=== PATIENT | female | born 1995 | race Caucasian/White ===

== ENCOUNTER → 2016-12-09 | Outpatient (CLI) | payer OTHER ==
[~2016-12-09] MED LIST: ALLEGRA180 MG PO; PRILOSEC 20MG20 MG PO; ZITHROMAX 250M250 MG PO
[2016-12-09 14:44] LABS: BASO % 0.4 % (0.0-2.0); EOS # 0.1 (0.0-0.7); EOS % 0.7 % (0-4.0); GRAN % 70.3 % (42.2-75.2); HEMATOCRIT 42.1 % (37.0-47.0); LYMPH # 1.5 (1.2-3.4); LYMPH % 20.8 % (20.0-51.0); MEAN CELL VOLUME 87 fl (80.0-100.0); MEAN CORPUSCULAR HEMOGLOBIN 29 pg (27.0-31.0); MEAN CORPUSCULAR HGB CONC 33 g/dl (33.0-37.0); MONO # 0.5 (0.1-0.6); MONO % 7.2 % (1.7-9.3); PLATELET COUNT 191 K/mm3 (130-400); RED BLOOD COUNT 4.84 M/mm3 (4.10-5.30); REDCELL DISTRIBUTION WIDTH-CV 12.8 % (11.5-14.5); WHITE BLOOD COUNT 7.1 K/mm3 (4.8-10.8)
[2016-12-09 14:54] LABS: ADJUSTED CALCIUM 9.3 mg/dL (8.4-10.2); ALBUMIN 4.3 gm/dL (3.5-5.0); BILIRUBIN,TOTAL 0.5 mg/dL (0.0-1.0); CALCIUM 9.5 mg/dL (8.4-10.2); CREATININE, serum 0.61 mg/dL (0.52-1.25); POTASSIUM 4.2 mmol/L (3.4-5.0)
== END ==
LOC: COL.LAB 14:04
PROVIDERS: Physician Assistant
DX: R11.10 Vomiting, unspecified (principal)

== ENCOUNTER → 2017-02-15 | Outpatient (CLI) | payer OTHER | LOC: BHSO 08:50 | DX: F33.1 Major depressive disorder, recurrent, moderate (principal) ==

== ENCOUNTER → 2017-05-16 | Outpatient (CLI) | payer OTHER | LOC: BHSO 12:49 | DX: F31.81 Bipolar II disorder (principal) ==

== ENCOUNTER 2017-06-14 12:02 | Emergency (ER) | payer OTHER ==
[~2017-06-14] VITALS: Ht 162.6 cm; Wt 118.2 kg
[~2017-06-14 12:02] MED LIST changes: -LOW-OGESTREL 281 TAB PO; -NORCO 325 MG-51 TAB PO; -PRISTIQ100 MG PO
[2017-06-14 12:04] VITALS: BP 169/93; PULSE 112; TEMP 99.1
[2017-06-14] MEDS ORDERED: PRISTIQ100 MG PO (12:10)
[2017-06-14] MEDS ORDERED: LOW-OGESTREL 281 TAB PO (12:11)
[2017-06-14] MEDS ORDERED: NORCO 325 MG-51 TAB PO (12:47)
== END 2017-06-14 13:38 | disposition home or self-care (01) ==
LOC: COL.ER 12:02
DX: S20.00XA Contusion of breast, unspecified breast, initial encounter (principal); F32.9 Major depressive disorder, single episode, unspecified; F41.9 Anxiety disorder, unspecified; X58.XXXA Exposure to other specified factors, initial encounter; Y92.009 Unspecified place in unspecified non-institutional (private) residence as the place of occurrence of the external cause

== ENCOUNTER → 2017-06-14 | Outpatient (CLI) | payer OTHER ==
[~2017-06-14] MED LIST changes: +LOW-OGESTREL 281 TAB PO; +NORCO 325 MG-51 TAB PO; +PRISTIQ100 MG PO
== END ==
LOC: LDRO 21:24
DX: Z04.41 Encounter for examination and observation following alleged adult rape (principal)
CPT/HCPCS: J0696

== ENCOUNTER → 2017-06-15 | Outpatient (CLI) | payer OTHER ==
[~2017-06-15] MED LIST changes: +LOW-OGESTREL 281 TAB PO; +NORCO 325 MG-51 TAB PO; +PRISTIQ100 MG PO
== END ==
LOC: BHSO 09:52
DX: F31.11 Bipolar disorder, current episode manic without psychotic features, mild (principal)

== ENCOUNTER → 2017-06-16 | Outpatient (CLI) | payer OTHER | LOC: BHSO 10:16 | DX: F31.81 Bipolar II disorder (principal) | CPT/HCPCS: G0463 ==

== ENCOUNTER → 2017-07-04 | Outpatient (CLI) | payer OTHER | LOC: BHSO 12:58 | DX: F31.81 Bipolar II disorder (principal) ==

== ENCOUNTER → 2017-07-24 | Outpatient (CLI) | payer OTHER | LOC: BHSO 13:59 | DX: F31.81 Bipolar II disorder (principal) ==

== ENCOUNTER → 2017-07-25 | Outpatient (CLI) | payer OTHER | LOC: BHSO 15:34 | DX: F33.41 Major depressive disorder, recurrent, in partial remission (principal) | CPT/HCPCS: G0463 ==

== ENCOUNTER → 2018-02-01 | Outpatient (CLI) | payer OTHER | LOC: BHSO 09:52 | DX: F31.81 Bipolar II disorder (principal) ==

== ENCOUNTER → 2019-10-10 | Outpatient (CLI) | payer BC | LOC: ZCOL.LAB 17:33 | DX: M79.10 Myalgia, unspecified site (principal); R53.83 Other fatigue; R11.0 Nausea; R05 Cough; Z20.828 Contact with and (suspected) exposure to other viral communicable diseases ==

== ENCOUNTER → 2020-08-04 | Outpatient (CLI) | payer BC | LOC: COL.RAD 06:26 | DX: R11.0 Nausea (principal); R10.13 Epigastric pain; E66.01 Morbid (severe) obesity due to excess calories | CPT/HCPCS: A9537 ==

== ENCOUNTER 2023-12-22 08:02 | Emergency (ER) | payer OTHER ==
[~2023-12-22] VITALS: Ht 162.6 cm; Wt 128.2 kg
[2023-12-22 08:13] VITALS: TEMP 99.1
[2023-12-22 09:22] LABS: BASO % 0.3 % (0.0-2.0); EOS # 0.1 K/mm3 (0.0-0.7); EOS % 0.6 % (0.0-4.0); GRAN % 81.5 % (42.2-75.2); HEMATOCRIT 40.8 % (37.0-47.0); HEMOGLOBIN 13.9 g/dl (12.5-16.0); LYMPH % 11.2 % (20.0-51.0); MEAN CELL VOLUME 85 fl (80.0-100.0); MEAN CORPUSCULAR HEMOGLOBIN 29 pg (27-31); MEAN CORPUSCULAR HGB CONC 34 g/dl (33.0-37.0); MEAN PLATELET VOLUME 9.7 fl (7.4-10.4); MONO # 0.5 K/mm3 (0.1-0.6); MONO % 5.7 % (1.7-9.3); PLATELET COUNT 190 K/mm3 (130-400); RED BLOOD COUNT 4.79 M/mm3 (4.10-5.30); REDCELL DISTRIBUTION WIDTH-CV 13.4 % (11.5-14.5)
[2023-12-22 11:32] LABS: COLLECTION METHOD CLEAN CATCH
[2023-12-22 11:49] LABS: URINE APPEARANCE CLOUDY (CLEAR/HAZY); URINE BLOOD 3+ (NEGATIVE); URINE COLOR YELLOW (YELLOW); URINE GLUCOSE NEGATIVE (NEGATIVE); URINE KETONE NEGATIVE (NEGATIVE); URINE NITRATE NEGATIVE (NEGATIVE); URINE PROTEIN(semi-quant) 1+ (NEGATIVE); URINE UROBILINOGEN 0.2 E.U/dL (0.2-1.0)
[2023-12-22 12:01] LABS: URINE BACTERIA MODERATE /hpf (NONE SEEN)
[2023-12-22] MEDS ORDERED: CEPHALEXIN500 M1 PO (12:11)
[2023-12-22 12:24] VITALS: BP 112/75; PULSE 99
== END 2023-12-22 12:24 | disposition home or self-care (01) ==
LOC: COL.ER 08:02
PROVIDERS: Personal Emergency Response Attendant
DX: O20.0 Threatened abortion (principal); O23.42 Unspecified infection of urinary tract in pregnancy, second trimester; Z3A.14 14 weeks gestation of pregnancy